=== PATIENT | male | born 1985 | race Caucasian/White ===

== ENCOUNTER 2017-03-01 12:28 | Inpatient (IN) | payer OTHER ==
--- NOTE | ~2017-03-01 | PN ---
Unit #: [id number] #: [id number] Patient: PRIAY CONRAD [id number] [facility] [address] [place] [address] [id number] I MR#: [id number] NAME: PRIYA CONRAD. ROOM: P171 Age: 31 Sex: M Admission Date: 03/01/2017 : 1985 Attending Physician: Haley Singh M.D. Admitting Physician: Haley Singh M.D. Primary Care Physician: Primary Care Physician Gretchen BIRD PROGRESS NOTES DATE 03/03/2017 DISCUSSION Mr. Conrad is a 31-year-old white male who was seen today and chart was reviewed and case was discussed with the staff. He has been anxious, withdrawn and rather seclusive to himself. Meanwhile, he has been cooperative with treatment recommendations and has been taking medications and tolerating them fairly well with no reported side effects. MENTAL STATUS EXAMINATION Young white male who was casually dressed with fair personal hygiene and appears to be in no acute distress or discomfort. He was awake and alert on interaction with intact orientation. His mood was anxious with congruent affect. He denies any suicidal or homicidal ideation. His insight and judgement remains slightly impaired. TREATMENT PLAN 1. Will continue him on his current medications and treatment protocol. Will monitor his response to the medications and make further adjustments as needed. 2. Will continue to follow up. Dictated by... Haley Singh M.D. IAA/melissa TD: 03/04/2017 18:55 JOB #: [id number] Unit #: [id number] #: [id number] Patient: PRIYA CONRAD PELON PROGRESS NOTES Page 1 of 1 X Haley Singh MD PROGRESS NOTE
--- NOTE | ~2017-03-01 | PA ---
Unit #: [id number] #: [id number] [facility] CONRAD [id number] [facility] [place] [address] [id number] I MR#: [id number] NAME: PRIYA CONRAD. ROOM: P171 Age: 31 Sex: M Admission Date: 03/01/2017 : 1985 Date of Assessment: 03/01/2017 Attending Physician: Haley Singh M.D. Admitting Physician: Haley Singh M.D. PSYCHIATRIC ASSESSMENT DATE OF SERVICE 03/01/2017. IDENTIFYING DATA Mr. Conrad is a 31-year-old single white male, who is a resident of [place], [place], and was self-referred to the hospital on a voluntary basis. CHIEF COMPLAINT "I've suicidal ideations and drug use." HISTORY OF PRESENT ILLNESS Mr. Conrad is a 31-year-old white male, who was directly admitted to us from [facility], where the patient presented with substance abuse and reports heroin abuse and left a suicide note and family called EMS and he was at the [facility] 7-1/2 months and was drug free until 2 weeks ago when he relapsed and has been using IV drugs including methamphetamine, heroin, and cocaine and has been exhibiting significant depression, anxiety, irritability, restlessness, feelings of hopelessness and helplessness, and suicidal ideations and as such, recommendation for inpatient level of care for safety and stabilization was made and the patient was transferred to us. SUBSTANCE ABUSE HISTORY The patient reports history of methamphetamine, cocaine, and heroin abuse and currently heroin has been his drug of choice. PAST PSYCHIATRIC HISTORY The patient has had [facility] and other [facility], and review of the medical records indicate currently he is not active in any treatment program, is not seeing a psychiatrist, and is not taking any psychotropic medications. PAST MEDICAL HISTORY Hypertension. ALLERGIES No known medication allergies. PERSONAL AND SOCIAL HISTORY A 31-year-old white male, who reports that he is single, unemployed, and lives by himself and has poor social support system. Unit #: [id number] #: [id number] Patient: PRIYA CONRAD MENTAL STATUS EXAMINATION Young white male who was casually dressed with fair personal hygiene, appears to be in no acute distress or discomfort. He was awake and alert on interaction with intact orientation to time, place, and person. His mood was anxious and depressed with a congruent affect. His speech was slow and restricted in content. His thought processes were disorganized with some looseness of associations and suicidal ideations. His insight and judgment remain significantly impaired. DIAGNOSTIC IMPRESSION Psychiatric: Major depressive disorder, recurrent, moderate, without psychotic features; opioid dependence, moderate; methamphetamine abuse, moderate; cocaine abuse, moderate. Medical: Hypertension. Stressors: Moderate psychosocial stressors. TREATMENT PLAN 1. The patient has presented with a history of substance abuse and mood disorder, and has been decompensating and will need inpatient hospitalization for safety and stabilization and detoxification. We will start him on his home medications. We will adjust the medications. 2. Supportive therapy was provided to the patient. 3. Safe, structured, and nourishing environment will be provided. ESTIMATED LENGTH OF STAY 5 to 7 days. ABILITY TO HELP SELF Limited. WILLINGNESS TO HELP SELF The patient appears to be willing to help self. STRENGTHS 1. Communicative. 2. Cooperative. PROBLEMS 1. Chronic dysphoric symptoms. 2. Chronic chemical dependency. 3. Poor social support system. DISCHARGE CRITERIA This will be contingent upon the patient's ability to go through detox without having any significant withdrawal symptoms as well as his ability to stay safe to himself, particularly after discharge from the hospital. Dictated by... Analia King/kevin TD: 03/02/2017 06:52 JOB #: [id number] Unit #: [id number] #: [id number] Patient: PRIYA CONRAD PSYCHIATRIC ASSESSMENT Page 1 of 1 X Haley Singh MD PSYCHIATRIC ASSESSMENT
--- NOTE | ~2017-03-01 | PN ---
Unit #: [id number] #: [id number] Patient: PRIYA CONRAD [id number] [facility] [address] [place] [address] [id number] I MR#: [id number] NAME: PRIYA CONRAD. ROOM: P171 Age: 31 Sex: M Admission Date: 03/01/2017 : 1985 Attending Physician: Haley Singh M.D. Admitting Physician: Haley Singh M.D. Primary Care Physician: Primary Care Physician Gretchen LIZ NOTES DATE OF SERVICE 03/01/2017 DISCUSSION Mr. Conrad is a 31-year-old white male who was seen today. Chart was reviewed and case was discussed with the staff. She has been anxious and withdrawn though has not shown any agitation or irritability and has been cooperative with the treatment recommendations as he has been taking the medications and tolerating them fairly well with no reported side effects though does appear to be in some distress or discomfort. MENTAL STATUS EXAMINATION Young white male who is casually dressed with fair personal hygiene, appears to be in no acute distress or discomfort. The patient was awake and alert on interaction with intact orientation. His mood is anxious with congruent affect. He denies any suicidal or homicidal ideations. His insight and judgment remain slightly impaired. TREATMENT PLAN 1. We will continue him on his current medications and treatment protocol. We will monitor his response to the medications and make further adjustments as needed. 2. We will continue to follow up. Dictated by... Haley Singh M.D. IAA/bzg TD: 03/03/2017 10:11 JOB #: [id number] Unit #: [id number] #: [id number] Patient: PRIYA CONRAD PROGRESS NOTES Page 1 of 1 X Haley Singh MD X PROGRESS NOTE
--- NOTE | ~2017-03-01 | HP ---
Unit #: [id number] #: [id number] Patient: PRYIA CONRAD [id number] [place] [address] [id number] I MR#: [id number] NAME: PRIYA CONRAD. ROOM: P171 Age: 31 Sex: M Admission Date: 03/01/2017 : 1985 Attending Physician: Haley Singh M.D. Admitting Physician: Haley Singh M.D. Primary Care Physician: Primary Care Physician No HISTORY AND PHYSICAL HISTORY OF PRESENT ILLNESS Priya is a 31 year old admitted to [facility] because of his drug use. He shoots heroin. PAST MEDICAL HISTORY Long history of opioid abuse to include IV heroin PAST SURGICAL HISTORY 1. Fractured right hip with ORIF 2. Appendectomy ALLERGIES No known drug allergies. SOCIAL HISTORY Smokes two packs per day. Drinks alcohol on occasion. Admits to a long history of opioid abuse to include IV heroin. FAMILY HISTORY Medically noncontributory. REVIEW OF SYSTEMS CONSTITUTIONAL: No fever or chills. HEENT: Denies any sore throat, ear pain or runny nose. CARDIOVASCULAR: Denies chest pain, irregular heart rhythm or palpitations. CHEST: Denies shortness of breath or cough. No hemoptysis. GASTROINTESTINAL: Denies nausea, vomiting, diarrhea or chronic constipation. ENDOCRINE: Denies history of increased thirst or urination. No recent significant weight loss or gain. GENITOURINARY: Denies dysuria, frequency, or hematuria. SKIN: Denies any rashes. HEMATOLOGIC: Denies history of increased bleeding or bruising. MUSCULOSKELETAL: Denies any hot, swollen joints. No generalized muscle pain. NEUROLOGIC: Denies problems with vision or speech. No frequent, severe headaches. No numbness, tingling or weakness in any extremities. Denies loss of bladder or bowel control. CURRENT MEDICATIONS 1. Milk of Magnesia p.r.n. Unit #: [id number] #: [id number] Patient: PRIYA CONRAD 2. Maalox p.r.n. 3. Tylenol p.r.n. 4. Nicotine patch q day PHYSICAL EXAMINATION GENERAL: Alert, well-nourished, in no apparent distress. VITAL SIGNS: Blood pressure 128/82, heart rate 66, respirations 16, temperature 98.6. WEIGHT: 200 pounds. HEIGHT: 6'0". SKIN: Warm and dry without rash or lesion. HEENT: Normocephalic. TMs not viewed. Oral and nasal passages clear. Conjunctivae clear. Pupils equal, round and reactive to light and accommodation. Extraocular movements intact. NECK: Supple without lymphadenopathy or thyromegaly. HEART: Regular rate and rhythm without murmur. LUNGS: Clear. ABDOMEN: Soft, nontender. : Not done. EXTREMITIES: No evidence of cyanosis, clubbing or edema. Moves all extremities without focal deficit. NEUROLOGICAL: Grossly within normal limits. Cranial Nerves: II: Visual phipps are intact. III, IV AND : Extraocular movements are intact. Pupils are equal, round and reactive to light. V: Facial sensation is grossly normal. VII: Facial movements and expression are normal. VIII: Auditory acuity grossly intact. IX, X: Uvula is midline. Phonation is normal. XI: Patient shrugs shoulders and turns head normally. XII: Tongue protrudes in the midline. Sensory and Motor Function: Sensory and motor sensation is grossly normal. Motor: moves all extremities well. Coordination: Gait is normal. Deep Tendon Reflexes: Intact. IMPRESSION Psychiatric admission RECOMMENDATIONS PSYCHIATRIC: Per psychiatrist. MEDICAL: I see no contraindications to participating in facility's activities. MEDICAL PROGNOSIS Good. MEDICAL CONDITION Stable. Dictated by... Mattie Beauchamp P.A.-C. for Analia Olguin/annie Unit #: [id number] #: [id number] Patient: PRIYA CONRAD TD: 03/02/2017 03:25 JOB #: [id number] HISTORY AND PHYSICAL Page 1 of 1 X Mattie Beauchamp HISTORY AND PHYSICAL
--- NOTE | ~2017-03-01 | DS ---
Unit #: [id number] #: [id number] [facility]: [facility] CON[facility] [id number] [facility] [address] [place] [address] [id number] I MR#: [id number] NAME: PRIYA CONRAD. ROOM: P171 Age: 31 Sex: M Admission Date: 03/01/2017 : 1985 Discharge Date: 03/04/2017 Attending Physician: Haley Singh M.D. Primary Care Physician: Primary Care Physician No DISCHARGE SUMMARY IDENTIFYING DATA Mr. Conrad is a 31-year-old white male, who is a resident of [place], [place] and was self-referred to the hospital on a voluntary basis. DISCHARGE DIAGNOSES Psychiatric: Major depressive disorder, recurrent, moderate, without psychotic features; opioid dependence, moderate; methamphetamine abuse, moderate; cocaine abuse, moderate. Medical: None. Stressors: Moderate psychosocial stressors. HISTORY OF PRESENT ILLNESS Please see initial psychiatric evaluation for details. PAST PSYCHIATRIC HISTORY Please see initial psychiatric evaluation for details. PAST MEDICAL HISTORY Please see initial psychiatric evaluation for details. HOSPITAL COURSE The patient was admitted to the adult chemical dependency and psychiatric unit at [facility] and was oriented to the hospital environment. Routine p.r.n. medications were initiated, and he was started on Celexa for depression and was closely monitored. He was taking the medications regularly and was tolerating them fairly well and was able to show a decent and therapeutic response with improvement in depression and anxiety and was willing to continue treatment on an outpatient basis, and as such, it was decided that he will be discharged home and will continue treatment on an outpatient basis. DISCHARGE MEDICATIONS Celexa 20 mg a day for depression. DISCHARGE CONDITION Stable. PROGNOSIS Fair. Dictated by... Haley Singh M.D. Unit #: [id number] #: [id number] Patient: PRIYA CONRAD IAA/modl TD: 03/04/2017 06:47 JOB #: [id number] DISCHARGE SUMMARY Page 1 of 1 X Haley Singh MD X DISCHARGE SUMMARY
== END 2017-03-04 10:00 | DRG 885 ==
LOC: P1E 12:28
PROC: HZ2ZZZZ Detoxification Services for Substance Abuse Treatment (ICD-10-PCS; principal; 2017-03-01)
DX: F33.1 Major depressive disorder, recurrent, moderate (principal); F11.20 Opioid dependence, uncomplicated; R45.851 Suicidal ideations; F15.10 Other stimulant abuse, uncomplicated; F14.10 Cocaine abuse, uncomplicated; I10 Essential (primary) hypertension

== ENCOUNTER 2017-04-05 18:53 | Inpatient (IN) | payer OTHER ==
--- NOTE | ~2017-04-05 | HP ---
Unit #: [id number] #: [id number] Patient: PRIYA CONRAD [id number] [place] [address] [id number] MR#: [id number] NAME: PRIYA CONRAD. ROOM: P186 Age: 31 Sex: M Admission Date: 04/05/2017 : 1985 Attending Physician: Santos Richards M.D. Admitting Physician: Santos Richards M.D. Primary Care Physician: Primary Care Physician No HISTORY AND PHYSICAL HISTORY OF PRESENT ILLNESS Priya is a 31 year old admitted to [facility] because of his drug use. He shoots heroin. He has had other admissions to this facility for treatment of the same. PAST MEDICAL HISTORY Long history of illicit substance abuse to include IV heroin. PAST SURGICAL HISTORY 1. Fractured right hip with ORIF. 2. Appendectomy. ALLERGIES No known drug allergies. SOCIAL HISTORY Smokes 2 packs per day. Alcohol on occasion. Admits to a long history of opioid abuse to include IV heroin. FAMILY HISTORY Medically noncontributory. REVIEW OF SYSTEMS CONSTITUTIONAL: No fever or chills. HEENT: Denies any sore throat, ear pain or runny nose. CARDIOVASCULAR: Denies chest pain, irregular heart rhythm or palpitations. CHEST: Denies shortness of breath or cough. No hemoptysis. GASTROINTESTINAL: Denies nausea, vomiting, diarrhea or chronic constipation. ENDOCRINE: Denies history of increased thirst or urination. No recent significant weight loss or gain. GENITOURINARY: Denies dysuria, frequency, or hematuria. SKIN: Denies any rashes. HEMATOLOGIC: Denies history of increased bleeding or bruising. MUSCULOSKELETAL: Denies any hot, swollen joints. No generalized muscle pain. NEUROLOGIC: Denies problems with vision or speech. No frequent, severe headaches. No numbness, tingling or weakness in any extremities. Denies loss of bladder or bowel control. CURRENT MEDICATIONS 1. Detox protocol. 2. Celexa 20 mg daily. Unit #: [id number] #: [id number] Patient: PRIYA CONRAD 3. Desyrel 100 mg q.h.s. PHYSICAL EXAMINATION GENERAL: Alert, well-nourished, in no apparent distress. VITAL SIGNS: Blood pressure 110/60, heart rate 86, respirations 16, temperature 98.6. WEIGHT: 199. HEIGHT: 6 feet 0 inches. SKIN: Warm and dry without rash or lesion. HEENT: Normocephalic. TMs not viewed. Oral and nasal passages clear. Conjunctivae clear. PERRLA. EOMs intact. NECK: Supple without lymphadenopathy or thyromegaly. HEART: Regular rate and rhythm without murmur. LUNGS: Clear. ABDOMEN: Soft, nontender. : Not done. EXTREMITIES: No evidence of cyanosis, clubbing or edema. Moves all without focal deficit. NEUROLOGICAL: Grossly within normal limits. Cranial Nerves: II: Visual phipps are intact. III, IV AND : Extraocular movements are intact. Pupils are equal, round and reactive to light. V: Facial sensation is grossly normal. VII: Facial movements and expression are normal. VIII: Auditory acuity grossly intact. IX, X: Uvula is midline. Phonation is normal. XI: Patient shrugs shoulders and turns head normally. XII: Tongue protrudes in the midline. Sensory and Motor Function: Sensory and motor sensation is grossly normal. Motor: moves all extremities well. Coordination: Gait is normal. Deep Tendon Reflexes: Intact. IMPRESSION Psychiatric admission. RECOMMENDATIONS PSYCHIATRIC: Per psychiatrist. MEDICAL: 1. See no contraindications to participate in facility's activities. 2. Patient's liver enzymes are elevated on admission, AST/ALT 336/601. Would screen for hepatitis C. MEDICAL PROGNOSIS Good. MEDICAL CONDITION Stable. Dictated by... Mattie Beauchamp P.A.-C. for Analia Olguin/melissa TD: 04/06/2017 18:11 JOB #: [id number] Unit #: [id number] #: [id number] Patient: PRIYA CONRAD HISTORY AND PHYSICAL Page 1 of 1 X Mattie Beauchamp HISTORY AND PHYSICAL
--- NOTE | ~2017-04-05 | PA ---
Unit #: [id number] #: [id number] Patient: PRIYA CONRAD [id number] [facility] [place] [address] [id number] I MR#: [id number] NAME: PRIYA CONRAD. ROOM: 86 Age: 31 Sex: M Admission Date: 04/05/2017 : 1985 Date of Assessment: Attending Physician: Santos Richards M.D. Admitting Physician: Santos Richards M.D. Primary Care Physician: Primary Care Physician No PSYCHIATRIC ASSESSMENT DATE OF ASSESSMENT 04/06/2017. INFORMANTS The patient reliability, fair informant; chart reliability, good. CHIEF COMPLAINT Suicidal ideation. HISTORY OF PRESENT ILLNESS Mr. Priya Conrad is a 31-year-old male, presented with increasing thoughts of hopelessness and suicidal ideation. The patient reported suicidal ideation with a plan to overdose. The patient reported history of inpatient treatment for suicidal ideation with a suicide note a month ago. The patient reported history of heroin use 1 to 2 g daily for the last 10 years. The patient reported one year of sobriety. The patient reported he has been using 1 g of heroin daily for the last week. Denied any withdrawal symptom. The patient denied any homicidal ideation or any hallucination. The patient reported tobacco use, age of onset 16; alcohol, age of onset 16; marijuana, age of onset 16; opioid, age of onset 21; amphetamine, age of onset 21; and benzodiazepine, age of onset 26. Longest period of sobriety 1 year. The patient reported last period of sobriety 2 years ago. The patient reported history of blackouts, history of IV drug use. No history of any hepatitis, HIV, or any withdrawal symptom, but currently reporting sleep problem, restlessness, poor appetite, nervousness, irritability, headache, depressed mood, muscle cramping. PAST PSYCHIATRIC HISTORY Remarkable for history of inpatient treatment in 02/2017. FAMILY HISTORY AND SOCIAL HISTORY Family history is unremarkable. The patient has support from his mother. No history of abuse. MEDICAL HISTORY Remarkable for hypertension. Musculoskeletal; muscle strength and tone, no atrophy or abnormal movement. Gait normal. MEDICATION HISTORY None. ALLERGIES Unit #: [id number] #: [id number] Patient: PRIYA CONRAD No known drug allergies. SUBSTANCE ABUSE HISTORY Please see above. REVIEW OF SYSTEMS HEENT: Eyes, clear. Ears, nose, mouth, and throat; clear. CARDIOVASCULAR: Unremarkable. RESPIRATORY: Unremarkable. GI: Unremarkable. : Unremarkable. SKIN: Unremarkable. LYMPH NODE: Unremarkable. NEUROLOGIC: Unremarkable. ENDOCRINE: Unremarkable. HEMATOLOGIC: Unremarkable. ALLERGIC/IMMUNOLOGIC: Unremarkable. MUSCULOSKELETAL: Muscle strength and tone, no atrophy or abnormal movement. Gait normal. MENTAL STATUS EXAMINATION CONSTITUTIONAL: Measurement of vital signs; temperature is 98.4, pulse 86, respiratory rate 16, blood pressure 103/59, height 6 feet, and weight 199 pounds. GENERAL APPEARANCE: The patient dressed casually. The patient did not show any facial deformity. MUSCULOSKELETAL: Please see above. PSYCHIATRIC EXAMINATION Description of speech; regular rate, normal volume, normal articulation, coherent. Description of thought process, goal directed. Description of abnormal psychotic thinking; the patient denied any hallucination or delusions, but having suicidal ideation, substance abuse. Description of the patient's judgment, concerning everyday activity, poor. Social situation, poor. Concerning psychiatric condition, poor. Complete mental status examination; oriented in time, place, and person. Recent and remote memory, fair. Attention span and concentration, fair. Language, able to name object and repeat phrases. Fund of knowledge, aware of current event and passive vocabulary intact. Mood and affect, sad and dysphoric. Insight and judgment, fair to poor. ASSETS AND LIABILITIES ASSETS; the patient is articulate and able to take care of his ADL. Liability, history of substance abuse and depression. ADMITTING DIAGNOSES Psychiatric: Mood disorder, not otherwise specified, F32.9; rule out major depressive disorder; opioid use disorder, moderate, F11.20. Secondary diagnosis: Deferred. Medical diagnoses: History of IV drug use of heroin, fractured right hip with open reduction and internal fixation, appendectomy. Stressors: Psychosocial stressors. PSYCHIATRIC PLAN Unit #: [id number] #: [id number] Patient: PRIYA CONRAD 1. Advised to admit the patient on the inpatient unit. Provide safe, supportive, and structured environment. 2. Ordered labs; CBC, CMP. 3. Detox protocol and detox monitoring. 4. Advised to resume home medications. If needed, consider further adjustment of medications, such as Celexa 20 mg daily, Desyrel 100 mg at bedtime, Vistaril 25 mg t.i.d. The patient to attend all the programing on the inpatient unit group therapy, individual therapy, medication management. If needed, consider further adjustment of medication. TREATMENT GOAL To attain euthymic mood, gain insight into his problem, and learn coping skills. DISCHARGE PLAN Plan to stabilize the patient and consider followup in outpatient program. ESTIMATED LENGTH OF STAY 5 days. Dictated by... Analia Lee/kevin TD: 04/07/2017 03:21 JOB #: [id number] PSYCHIATRIC ASSESSMENT Page 1 of 1 X Santos Richards MD X PSYCHIATRIC ASSESSMENT
--- NOTE | ~2017-04-05 | PN ---
Unit #: [id number] #: [id number] Patient: PRIYA CONRAD [id number] [facility] [address] [place] [address] [id number] MR#: [id number] NAME: PRIYA CONRAD. ROOM: 86 Age: 31 Sex: M Admission Date: 04/05/2017 : 1985 Attending Physician: Santos Richards M.D. Admitting Physician: Santos Richards M.D. Primary Care Physician: Primary Care Physician Gretchen BIRD PROGRESS NOTES DATE OF SERVICE 04/07/2017 DISCUSSION Priya Conrad is a 31-year-old male seen on 04/07/2017. Patient interviewed, chart reviewed, I obtained information from nursing staff. Patient compliant, cooperative. Mood sad, dysphoric. Flat affect, guarded. Patient reported still feeling depressed, but denied any suicidal or homicidal ideation. Vital signs: 98.4, 79, 131/78. COMPLETE REVIEW OF SYSTEMS Unremarkable. MENTAL STATUS EXAMINATION GENERAL APPEARANCE: Patient dressed casually. ATTENTION SPAN AND CONCENTRATION: Fair. Oriented in time, place and person. MOOD AND AFFECT: Sad, depressed. SPEECH: Monotone. THOUGHT PROCESS: [place]. Patient denied any thoughts of harming self or others. RECENT AND REMOTE MEMORY: Poor. INSIGHT AND JUDGMENT: Poor. DIAGNOSIS Opiate use disorder, moderate to severe Mood disorder, NOS ASSESSMENT/PLAN Advised to continue with current medication and therapeutic protocol. If needed, consider further adjustment in medication. Dictated by... Analia Lee/gianni TD: 04/07/2017 20:05 JOB #: [id number] Unit #: [id number] #: [id number] Patient: PRIYA CONRAD PROGRESS NOTES Page 1 of 1 X Santos Richards MD PROGRESS NOTE
--- NOTE | ~2017-04-05 | PN ---
Unit #: [id number] #: [id number] Patient: PRIYA CONRAD [id number] [facility] [address] [place] [address] [id number] MR#: [id number] NAME: PRIYA CONRAD. ROOM: P186 Age: 31 Sex: M Admission Date: 04/05/2017 : 1985 Attending Physician: Santos Richards M.D. Admitting Physician: Santos Richards M.D. Primary Care Physician: Primary Care Physician Gretchen BIRD PROGRESS NOTES DATE OF SERVICE 04/06/2017 DISCUSSION Mr. Priya Conrad is a 31-year-old male seen on 04/06/2017. Patient interviewed, chart reviewed, I obtained information from nursing staff. Patient compliant, cooperative, mood sad, dysphoric, withdrawn, isolative, feeling hopelessness, worthlessness. COMPLETE REVIEW OF SYSTEMS Unremarkable. MENTAL STATUS EXAMINATION GENERAL APPEARANCE: Patient dressed casually. ATTENTION SPAN AND CONCENTRATION: Fair. Oriented in time, place and person. MOOD AND AFFECT: Sad, depressed. SPEECH: Monotone. THOUGHT PROCESS: Pearl. Patient denied any thoughts of harming self or others, but guarded. RECENT AND REMOTE MEMORY: Poor. INSIGHT AND JUDGMENT: Poor. DIAGNOSES Mood disorder, NOS Opiate use disorder, moderate ASSESSMENT/PLAN Advised to continue with current medication and therapeutic protocol. If needed, consider further adjustment on medication. Dictated by... Analia Lee/gianni TD: 04/07/2017 00:17 JOB #: [id number] Unit #: [id number] #: [id number] Patient: PRIYA CONRAD [facility] PROGRESS NOTES Page 1 of 1 X Santos Richards MD PROGRESS NOTE
--- NOTE | ~2017-04-05 | DS ---
Unit #: [id number] #: [id number] Patient: PRIYA CONRAD [id number] [facility] [address] [place] [address] [id number] MR#: [id number] NAME: PRIYA CONRAD. ROOM: 86 Age: 31 Sex: M Admission Date: 04/05/2017 : 1985 Discharge Date: 04/08/2017 Attending Physician: Santos Richards M.D. Primary Care Physician: Primary Care Physician No DISCHARGE SUMMARY REASON FOR ADMISSION Suicidal ideation. DIAGNOSTIC STUDIES Unremarkable. HOSPITAL COURSE Patient was treated on the inpatient unit with group therapy, individual therapy, expressive therapy and medication management. Patient responded well with the above modalities of treatment and treatment with the combination of Celexa and trazodone. Subsequently, the patient was discharged with the plan to follow up in outpatient program. DISCHARGE MEDICATIONS 1. Celexa 20 mg daily for depression. 2. Trazodone 100 mg at bedtime for sleep. DISCHARGE DIAGNOSES PSYCHIATRIC: Mood disorder, not otherwise specified, F32.9 Rule out major depressive disorder, moderate Opiate use disorder, moderate, F11.20 SECONDARY DIAGNOSIS: Deferred MEDICAL DIAGNOSIS: History of intravenous drug use of heroin Fractured right hip for which he underwent open reduction internal fixation Appendectomy STRESSORS: Psychosocial stressors INSTRUCTIONS TO PATIENT Patient to follow up in outpatient clinic as per social science professor. CONDITION ON DISCHARGE Patient pleasant, cooperative, denied any psychotic symptom or any suicidal ideation. PROGNOSIS Guarded. DIET AND ACTIVITY As tolerated. Unit #: [id number] #: [id number] Patient: PRIYA CONRAD Dictated by... Analia Lee/gianni TD: 04/08/2017 21:52 JOB #: [id number] DISCHARGE SUMMARY Page 1 of 1 X Santos Richards MD X DISCHARGE SUMMARY
[2017-04-06 12:40] LABS: BASOPHIL# 0.1 X10e3 (0-0.3); BASOPHIL% 1.2 % (0-2.5); EOSINOPHIL# 0.3 X10e3 (0-0.7); EOSINOPHIL% 5.6 % (0.0-7.0); HEMATOCRIT 43.2 % (38.0-50.0); HEMOGLOBIN 14.1 gm/dL (13.0-16.0); LYMPHOCYTE# 1.6 X10e3 (1.0-3.5); LYMPHOCYTE% 33.2 % (17.0-45.0); MEAN CELL VOLUME 86.1 FL (83-96); MEAN CORPUSCULAR HEMOGLOBIN 28.1 PG (28-34); MEAN CORPUSCULAR HGB CONC 32.6 g/dL (30-36); MEAN PLATELET VOLUME 8.5 FL (6.5-11.5); MONOCYTE# 0.4 X10e3 (0-1.0); MONOCYTE% 8.8 % (3.0-12.0); NEUTROPHIL# 2.4 X10e3 (1.5-7.1); NEUTROPHIL% 51.2 % (40-75); PLATELET COUNT 202 X10e3 (140-420); RED BLOOD COUNT 5.01 X10e (3.90-5.60); RED CELL DISTRIBUTION WIDTH 13.8 % (11.0-15.5); WHITE BLOOD COUNT 4.7 X10e3 (4.0-10.5)
[2017-04-06 12:46] LABS: BILIRUBIN,TOTAL 1.7 mg/dL (0.2-2.0); BUN/CREATININE RATIO 12.85; CALCIUM SERUM 9.6 mg/dL (8.4-10.2); CREATININE SERUM 0.7 mg/dL (0.6-1.4); GLOM FILT RATE Estimated 126.7 mL/min (>60); POTASSIUM 3.7 mmol/L (3.5-5.1); PROTEIN TOTAL SERUM 6.3 g/dL (6.0-8.3)
[2017-04-06 12:48] LABS: DIFF IND NO
== END 2017-04-08 11:35 | disposition home or self-care (01) | DRG 885 ==
LOC: P1E 22:01
PROVIDERS: Psychiatry & Neurology Psychiatry
PROC: HZ2ZZZZ Detoxification Services for Substance Abuse Treatment (ICD-10-PCS; principal; 2017-04-05)
DX: F39 Unspecified mood [affective] disorder (principal); F11.20 Opioid dependence, uncomplicated; R45.851 Suicidal ideations; F17.210 Nicotine dependence, cigarettes, uncomplicated
CPT/HCPCS: 80053; 85025; 86592